=== PATIENT | female | born 1975 | race Caucasian/White ===

== ENCOUNTER 2021-02-07 15:50 | Emergency (ER) | payer OTHER ==
[~2021-02-07] VITALS: Ht 152.4 cm; Wt 59.0 kg
[2021-02-07] MEDS ORDERED: LISINOPRIL-HCT1 EAC2 PO (15:59)
[2021-02-07] MEDS ORDERED: PROZAC20 M1 PO (15:59)
[2021-02-07] MEDS ORDERED: ATIVAN0.5 M1 PO (16:00)
[2021-02-07] MEDS ORDERED: NORCO7.5 PO (16:00)
[2021-02-07] MEDS ORDERED: TIZANIDINE HCL2 M1 PO (16:00)
[2021-02-07] MEDS ORDERED: AMBIEN 10 MG TA10 MG PO (16:00)
[2021-02-07 20:30] LABS: ABSOLUTE BASOPHILS 0.1 thou/uL (0.0-0.2); ABSOLUTE LYMPHOCYTES 2.1 thou/uL (0.8-5.3); ABSOLUTE MONOCYTES 0.5 thou/uL (0.0-1.2); ABSOLUTE NEUTROPHILS 9.6 thou/uL (1.6-8.1); BASOPHILS 0.6 %; EOSINOPHILS 0.2 %; HEMATOCRIT 38.3 % (37.0-47.0); HEMOGLOBIN 12.8 gm/dL (12.0-15.0); LYMPHOCYTES 17.3 %; MCHC 33.3 g/dL (28.0-37.0); MCV 90.1 fL (80.0-100.0); MONOCYTES 3.7 %; MPV 7.6 fl. (7.2-11.1); NUCLEATED RBCS 0 /100WBC; PLATELET COUNT* 325 thou/uL (150-400); POLYS 78.2 %; RBC 4.25 mil/uL (4.20-5.00); RDW-CV 13.3 % (10.5-14.5); WBC 12.3 thou/uL (4.0-11.0)
[2021-02-07 20:42] LABS: CALCIUM 9.4 mg/dL (8.5-10.1); CREATININE 0.7 mg/dL (0.6-1.3); POTASSIUM 3.9 mmol/L (3.5-5.1)
[2021-02-07 20:43] LABS: URINE BILIRUBIN NEGATIVE (Negative); URINE BLOOD 1+ (Negative); URINE CLARITY CLEAR; URINE COLOR YELLOW; URINE GLUCOSE-RANDOM NEGATIVE (Negative); URINE KETONES NEGATIVE (Negative); URINE LEUKOCYTES NEGATIVE (Negative); URINE NITRITE NEGATIVE (Negative); URINE PROTEIN NEGATIVE (Negative); URINE UROBILINOGEN 0.2 E.U./dl (0.2-1.0)
[2021-02-07 20:46] LABS: ALBUMIN 3.9 g/dL (3.4-5.0); TOTAL BILIRUBIN 0.6 mg/dL (<0.1-1.0); TOTAL PROTEIN 7.2 g/dL (6.4-8.2)
[2021-02-07 20:47] LABS: INFLUENZA A ANTIGEN Negative (Negative); INFLUENZA B ANTIGEN Negative (Negative)
[2021-02-07 20:50] LABS: BACTERIA 1-9 Few /HPF (None Seen); CASTS None Seen /LPF (None Seen); CRYSTALS None Seen /LPF (None Seen); SQUAMOUS 4-10 Moderate /LPF (0-3); URINE RBC >20 Many /HPF (0-2); URINE WBC 0-5 Rare /HPF (0-5)
[2021-02-07] MEDS ORDERED: HYDROXYZINE HCL25 M2 PO (22:22)
[2021-02-07 22:32] VITALS: BP 136/79
--- NOTE | 2021-02-08 11:01 | EKG ---
[place] [address] ELECTROCARDIOGRAM REPORT Name: ADDIE AMATO Room: [facility], [place]#: [id number] Admission: 02/07/21 Attend Phys: Discharge: 02/07/21 Date of : 77 Date of Service: 02/07/21 1555 Report #: [id number] THIS REPORT FOR: //name// [facility] ED Test Date: 2021-02-07 Test Time: 15:55:36 Pat Name: ADDIE AMATO Department: Room: Gender: F Documentation Improvement Specialist: : [id number] Requested By: Konstantin Garcia Order Number: [id number] MD: Richard Johnson Measurements Intervals [place] Rate: 75 P: 68 MT: 118 QRS: 83 QRSD: 105 T: 14 QT: 465 QTc: 520 Interpretive Statements Sinus rhythm Borderline short MT interval Probable left atrial enlargement Borderline repolarization abnormality Prolonged QT interval No previous ECG available for comparison Electronically Signed On 02-08-2021 11:00:44 FACILITY SERVICE ASSOCIATE by Richard Johnson [email or web address] <ELECTRONICALLY SIGNED> By: Richard Johnson MD, [facility] 02/08/21 1100 1555 1555 Richard Johnson MD, [facility] /EPI
== END 2021-02-07 22:33 | disposition home or self-care (01) ==
LOC: M.ERS 15:50
PROVIDERS: Personal Emergency Response Attendant; Physician Assistant
DX: F41.9 Anxiety disorder, unspecified (principal); Z20.822 Contact with and (suspected) exposure to COVID-19; R11.0 Nausea; I10 Essential (primary) hypertension; Z90.710 Acquired absence of both cervix and uterus; Z79.899 Other long term (current) drug therapy